=== PATIENT | male | born 1950 | race Caucasian/White ===

== ENCOUNTER 2016-12-13 07:44 | Day surgery (SDC) | payer MEDICARE ==
[~2016-12-13 07:44] MED LIST: FENTANYL 250 MCG/5 ML AMP IV PRN; IV START KIT ONE; LACTATED RINGERS 1,000 ML IV SCH; LACTATED RINGERS 1,000 ML ONE; MIDAZOLAM HCL 5 MG/5 ML VIAL IV PRN
[2016-12-13] MEDS ORDERED: FENTANYL 100 MCG/2 ML VIAL ONE (09:24)
[2016-12-13] MEDS ORDERED: MIDAZOLAM HCL 5 MG/5 ML VIAL ONE (09:24)
[2016-12-13] MEDS ORDERED: LIDOCAINE Viscous 2% 15 ML UDCUP ONE (09:25)
[2016-12-13 15:27] LABS: HELICOBACTER PYLORII DETECTION NEGATIVE (NEGATIVE)
--- NOTE | 2016-12-18 08:54 | SURGPATH ---
[facility] [address] [place] [id number] Patient Name: BLAYNE ADKINS MR#: [id number] : 1950 Gender: M Specimen #: [id number] Collected: 12/13/2016 Received: 12/15/2016 Reported: 12/18/2016 Submitting Phys: KONSTANTIN MCCLAIN Copy To Phys: [facility] Clinical History / Pre-Operative Diagnosis: Epigastric pain, heartburn, chest pain, rule out; celiac sprue, GIARDIA, and gastritis Specimen Source / Surgical Procedure Performed: #1 duodenal biopsy, #2 antral biopsy, #3 gastric fundal polyp biopsy Interpretation: 1. DUODENUM, BIOPSY: - NO PATHOLOGIC ABNORMALITIES 2. GASTRIC ANTRUM, BIOPSY: - NO PATHOLOGIC ABNORMALITIES 3. GASTRIC POLYP, BIOPSY: - FUNDIC GLAND POLYP Electronically Signed Out Tadeo Finn M.D. Gross Description: The specimen is received in three formalin filled containers, labeled with the patient's name. 1. The specimen is labeled "duodenum" and consists of two irregularly shaped fragment(s) of mcdonough tissue aggregating to 0.5 x 0.5 x 0.2 cm. The specimen is entirely submitted in cassette 1A. 2. The specimen is labeled "antrum" and consists of three irregularly shaped fragment(s) of mcdonough tissue aggregating to 1.0 x 0.2 x 0.1 cm. The specimen is entirely submitted in cassette 2A. 3. The specimen is labeled "gastric fundal polyp" and consists of two irregularly shaped fragment(s) of mcdonough tissue aggregating to 0.6 x 0.2 x 0.2 cm. The specimen is entirely submitted in cassette 3A. QUINTON Rick Microscopic Description: 1. The sections show fragments of small bowel mucosa exhibiting a normal architectural pattern without evidence of villous blunting. There are no inflammatory or neoplastic features and there are no microorganisms identified. 2. The sections show fragments of gastric mucosa exhibiting a normal architectural pattern. There are no inflammatory or neoplastic features and there are no Helicobacter-like organisms identified. 3. The sections show gastric mucosa with dilated fundic glands without atypia. 1: 28522 2: 71492 3: 92920 K31.7
== END 2016-12-13 10:40 | disposition home or self-care (01) ==
LOC: SDC 07:44
PROVIDERS: ATTEND Internal Medicine Gastroenterology
PROC: 0DB98ZX Excision of Duodenum, Via Natural or Artificial Opening Endoscopic, Diagnostic (ICD-10-PCS; principal; 2016-12-13)
PROC: 0DB68ZX Excision of Stomach, Via Natural or Artificial Opening Endoscopic, Diagnostic (ICD-10-PCS; 2016-12-13)
PROC: 0DB68ZX Excision of Stomach, Via Natural or Artificial Opening Endoscopic, Diagnostic (ICD-10-PCS; 2016-12-13)
DX: K29.70 Gastritis, unspecified, without bleeding (principal); K31.7 Polyp of stomach and duodenum; K29.80 Duodenitis without bleeding; Z86.010 Personal history of colon polyps; I10 Essential (primary) hypertension; E78.5 Hyperlipidemia, unspecified; Z79.82 Long term (current) use of aspirin
CPT/HCPCS: 87081; 43239; J3010; J2250; A9270; J7120